=== PATIENT | female | born 2000 | race African-American/Black ===

== ENCOUNTER 2021-11-27 11:43 | Inpatient (IN) | payer OTHER ==
[~2021-11-27] VITALS: Ht 157.5 cm; Wt 58.1 kg
[~2021-11-27 11:43] MED LIST: NICOTINE 21MG/24HR 1 EA TRANSDERMAL TD SCH
[2021-11-27] MEDS ORDERED: ZOLO50TA PO (12:38)
[2021-11-27 12:56] LABS: HEMATOCRIT 37.7 % (36.0-47.0); HEMOGLOBIN 12.3 g/dl (12.0-15.5); MEAN CORPUSCULAR HEMOGLOBIN 29.2 pg (27.0-33.0); MEAN CORPUSCULAR HGB CONC 32.6 g/dl (32.0-36.5); MEAN CORPUSCULAR VOLUME 89.5 fl (80.0-96.0); PLATELET COUNT, AUTOMATED 185 10^3/uL (150-450); RED BLOOD COUNT 4.21 10^6/uL (4.00-5.40)
[2021-11-27 13:21] LABS: HCG, SERUM QUALITATIVE NEGATIVE (NEGATIVE)
[2021-11-27 13:25] LABS: ALBUMIN 3.7 GM/DL (3.2-5.2); ALT/SGPT 14 U/L (12-78); AMPHETAMINES LEVEL URINE NEGATIVE (NEGATIVE); BARBITURATES URINE NEGATIVE (NEGATIVE); BENZODIAZEPINES URINE NEGATIVE (NEGATIVE); BILIRUBIN,DIRECT < 0.1 MG/DL (0.0-0.2); BILIRUBIN,TOTAL 0.2 MG/DL (0.2-1.0); BLOOD UREA NITROGEN 19 MG/DL (7-18); CALCIUM LEVEL 8.6 MG/DL (8.5-10.1); CANNABINOIDS URINE NEGATIVE (NEGATIVE); CARBON DIOXIDE LEVEL 24 MEQ/L (21-32); CHLORIDE LEVEL 107 MEQ/L (98-107); COCAINE METABOLITE URINE NEGATIVE (NEGATIVE); CREATININE FOR GFR 0.78 MG/DL (0.55-1.30); ETHYL ALCOHOL (ETHANOL) 0.004 % (0.000-0.010); GLOMERULAR FILTRATION RATE > 60.0 (>60); GLUCOSE, FASTING 89 MG/DL (70-100); METHADONE URINE NEGATIVE (NEGATIVE); OPIATES URINE NEGATIVE (NEGATIVE); PHENCYCLIDINE URINE NEGATIVE (NEGATIVE); SALICYLATE LEVEL < 1.7 MG/DL (5.0-30.0); SODIUM LEVEL 138 MEQ/L (136-145); TOTAL PROTEIN 6.9 GM/DL (6.4-8.2)
[2021-11-27 13:31] LABS: RSV AMPLIFICATION NEGATIVE (NEGATIVE)
[2021-11-27 15:00] LABS: ACETAMINOPHEN LEVEL < 2.0 UG/ML (0.0-30.0)
[2021-11-27] MEDS ORDERED: HOME MED LIST COMPLETE! XX SCH (15:45)
[2021-11-27] MEDS ORDERED: MAALOX 30 ML SUSP *UDC PO PRN (15:50)
[2021-11-27] MEDS ORDERED: MOM 30ML SUSPENSION UDC PO PRN (15:50)
[2021-11-27 20:42] VITALS: BP 109/60
[2021-11-27] MEDS: traZODone 50 MG TAB PO PRN (21:17)
[2021-11-27] MEDS ORDERED: NICOTINE POLACRILEX 2 MG GUM PO PRN (23:20)
[2021-11-28 06:00] VITALS: BP 94/49
[2021-11-28] MEDS: ACETAMINOPHEN TAB 650MG DOSE (2X325MG) PO PRN (10:57)
[2021-11-28] MEDS: SERTRALINE HCL 50 MG TAB PO SCH (12:53)
[2021-11-28 18:06] VITALS: BP 131/60
[2021-11-29 06:59] VITALS: BP 91/50
[2021-11-29] MEDS: SERTRALINE HCL 50 MG TAB PO SCH (08:46)
[2021-11-29 18:11] VITALS: BP 134/61
[2021-11-30 06:30] VITALS: BP 105/58
[2021-11-30] MEDS: SERTRALINE HCL 50 MG TAB PO SCH (08:53)
[2021-11-30 18:00] VITALS: BP 127/60
[2021-11-30] MEDS: traZODone 50 MG TAB PO PRN (22:54)
[2021-12-01 07:10] VITALS: BP 95/51
[2021-12-01] MEDS: SERTRALINE HCL 50 MG TAB PO SCH (09:21)
[2021-12-01 18:09] VITALS: BP 147/63
[2021-12-02] MEDS: traZODone 50 MG TAB PO PRN ×2 (00:06→22:03)
[2021-12-02 06:00] VITALS: BP 104/58
[2021-12-02] MEDS: SERTRALINE HCL 50 MG TAB PO SCH (08:51)
[2021-12-02] MEDS: ACETAMINOPHEN TAB 650MG DOSE (2X325MG) PO PRN (14:53)
[2021-12-02 16:05] VITALS: BP 108/65
[2021-12-03 06:46] VITALS: BP 104/56
[2021-12-03] MEDS: SERTRALINE HCL 50 MG TAB PO SCH (09:40)
[2021-12-03 18:29] VITALS: BP 110/65
[2021-12-03] MEDS: traZODone 50 MG TAB PO PRN (23:02)
[2021-12-04 06:42] VITALS: BP 135/80
[2021-12-04] MEDS ORDERED: SERT50TA29 PO (08:58)
[2021-12-04] MEDS ORDERED: TRAZ-252 PO (08:58)
[2021-12-04] MEDS: SERTRALINE HCL 50 MG TAB PO SCH (09:34)
== END 2021-12-04 10:50 | disposition home or self-care (01) | DRG 881 ==
LOC: M ED 11:43 → M ED INP 15:50 → M PSY 19:45
PROVIDERS: ADMIT Psychiatry & Neurology Psychiatry; ATTEND Psychiatry & Neurology Psychiatry
DX: F32.A Depression, unspecified (principal); R45.851 Suicidal ideations; F43.10 Post-traumatic stress disorder, unspecified; Z62.810 Personal history of physical and sexual abuse in childhood; Z62.811 Personal history of psychological abuse in childhood; Z91.51 Personal history of suicidal behavior; Z62.812 Personal history of neglect in childhood; Z91.82 Personal history of military deployment; Z91.410 Personal history of adult physical and sexual abuse; Z79.899 Other long term (current) drug therapy; Z56.6 Other physical and mental strain related to work

== ENCOUNTER → 2022-07-11 | Outpatient (REF) | payer OTHER ==
[~2022-07-11] MED LIST changes: -NICOTINE 21MG/24HR 1 EA TRANSDERMAL TD SCH; +SERT50TA29 PO; +TRAZ-252 PO; +ZOLO50TA PO
== END ==
LOC: M LAB REF 18:57
PROVIDERS: ATTEND Student in an Organized Health Care Education/Training Program
DX: J02.9 Acute pharyngitis, unspecified (principal)

== ENCOUNTER → 2022-07-24 | Outpatient (REF) | payer OTHER ==
[2022-07-24 21:43] LABS: GC DNA AMPLIFICATION NEGATIVE (NEGATIVE)
== END ==
LOC: M LABWUC 19:25
PROVIDERS: ATTEND Student in an Organized Health Care Education/Training Program
DX: R30.0 Dysuria (principal)